=== PATIENT | female | born 1975 | race Caucasian/White ===

== ENCOUNTER 2018-07-08 20:28 | Emergency (ER) | payer OTHER ==
--- NOTE | 2018-07-08 21:25 | EDM.PDOC ---
ED HPI GENERAL MEDICAL PROBLEM - General Stated Complaint: SPLINT RESPLACEMENT AND CHECK Time Seen by Provider: 07/08/18 20:28 Source of Information: Reports: Patient, Family History Limitations: Reports: No Limitations - History of Present Illness INITIAL COMMENTS - FREE TEXT/NARRATIVE: 42 y.o.w.f came from [facility] after an ankle surgery. A short right lower leg splint was applied at [place], crutches were given at [place], which the pt left at home. The patient came to the ed with her dad because her splint is wet. Her splint was already wet as she left [place]. Splint did not dry up in the past 4 hours. Pt denied pain or any other discomfort. She want a new splint applied. No N/V/D or any other acute medical issues. BP 122/83 Pulse 71 RR 18 Pulse ox 98% on RA Temp 37.1 Onset Date: 07/08/18 Onset Time: 14:00 Duration: Hour(s): Location: Reports: Lower Extremity, Right Quality: Reports: Other (wet splint) Severity: Mild Improves with: Reports: None Worsens with: Reports: None Context: Reports: Other (wet left splint) Associated Symptoms: Reports: No Other Symptoms - Related Data Allergies Allergy/AdvReac Type Severity Reaction Status Date / Time hylan G-F 20 [Hylan G-F 20] Allergy Mild Cannot Verified 04/24/13 09:33 Remember levonorgestrel Allergy Cannot Verified 04/24/13 09:33 Remember methylprednisolone Allergy Cannot Verified 04/24/13 09:33 Remember triamcinolone Allergy Cannot Verified 04/24/13 09:33 Remember Home Meds: Home Meds Ascorbic Acid [C-1000] 1 mg PO DAILY 04/21/13 [History] Calcium Carb/D3/Magnesium/Zinc [Rudi Mag Zinc + D Tablet] 1 each PO 04/21/13 [ History] Docusate Sodium 100 mg PO DAILY 04/21/13 [History] Fluticasone Propionate [Flovent] 1 puff IH BID 04/21/13 [History] Gluc 2KCl/Chondr/Jordon Hy/Hy Ac [Glucosamine & Chondroitin Cap] 30 ml PO DAILY [History] Hydrocortisone Acetate [Anusol-Hc] 25 mg RECTAL DAILY 04/21/13 [History] Hydrocortisone [Anusol-HC] 2.5 percent TOP BID 04/21/13 [History] LORazepam [Ativan] 0.5 mg PO BID 04/21/13 [History] Multivitamin [Multi Vitamin Daily] 1 each PO DAILY 04/21/13 [History] Polyethylene Glycol 3350 [MiraLAX] 17 g PO DAILY 04/21/13 [History] Venlafaxine [Effexor XR] 150 mg PO DAILY 04/21/13 [History] Vit B12/Fa/Pyridoxine HCl/AA15 [Glycotrol] 1,000 mg PO BID 04/21/13 [History] Vitamin B Complex [B-100 Complex] 1 each PO DAILY 04/21/13 [History] Zolpidem [Ambien] 5 mg PO BEDTIME 04/21/13 [History] traMADol Hcl/Acetaminophen [Ultracet Tablet] 37.5 - 325 mg PO BID 04/21/13 [ History] Review of Systems - Review of Systems Review Of Systems: See Below Constitutional: Reports: No Symptoms Eyes: Reports: No Symptoms Ears: Reports: No Symptoms Nose: Reports: No Symptoms Mouth/Throat: Reports: No Symptoms Respiratory: Reports: No Symptoms Cardiovascular: Reports: No Symptoms GI/Abdominal: Reports: No Symptoms Genitourinary: Reports: No Symptoms Musculoskeletal: Reports: Other (left ankle surgery) Skin: Reports: No Symptoms Neurological: Reports: No Symptoms Psychiatric: Reports: No Symptoms ED EXAM, GENERAL - Physical Exam Exam: See Below Exam Limited By: No Limitations General Appearance: Alert, WD/WN, Obese Eye Exam: Bilateral Eye: Normal Inspection Ears: Normal External Exam Ear Exam: Bilateral Ear: Auricle Normal Nose: Normal Inspection Throat/Mouth: Normal Inspection Head: Atraumatic, Normocephalic Neck: Normal Inspection, Supple, Non-Tender, Full Range of Motion Respiratory/Chest: No Respiratory Distress, Lungs Clear, Normal Breath Sounds, No Accessory Muscle Use, Chest Non-Tender Cardiovascular: Normal Peripheral Pulses, Regular Rate, Rhythm, No Edema, No Gallop, No JVD, No Murmur Peripheral Pulses: 1+: Brachial (R) GI/Abdominal: Normal Bowel Sounds (Female) Exam: Deferred Rectal (Female) Exam: Deferred Back Exam: Normal Inspection, Full Range of Motion Extremities: Normal Capillary Refill, Other (slint left leg) Neurological: Alert, Oriented, CN II-XII Intact, Normal Cognition, Abnormal Gait (splint left leg) Psychiatric: Normal Affect, Depressed Mood Skin Exam: Warm, Dry, Intact, Normal Color, No Rash Lymphatic: No Adenopathy ED TRAUMA EXTREMITY PROCEDURES - Splinting Right Lower Extremity Splint Site: short lower leg spint replacement, was wet Pre-Procedure NV Status: Normal Post-Procedure NV Status: Normal Splint Material: Fiberglass Splint Design: Posterior Applied & Form Fitted By: Provider Provider Post-Splint Application NV Check: NV Status Normal, Good Position Complications: No Course - Vital Signs Text/Narrative:: 42 y.o.w.f came from [facility] after an ankle surgery. A short right lower leg splint was applied at [place], crutches were given at [place], which the pt left at home. The patient came to the ed with her dad because her splint is wet. Her splint was already wet as she left [place]. Splint did not dry up in the past 4 hours. Pt denied pain or any other discomfort. She want a new splint applied. No N/V/D or any other acute medical issues. BP 122/83 Pulse 71 RR 18 Pulse ox 98% on RA Temp 37.1 PE: WNWD W F s/p left ankle surgery, splint was placed at [place]. The soft padding of the the splint is wet, not the Fiberglas Procedure: Please see not above Impression: Replacement of soft padding of the left lower leg splint Tx: Replacement of padding left leg splint, done by EDMD Reexam: Improved Plan: D/C with instructions Last Recorded V/S: Last Vital Signs Temp 37.1 C 07/08/18 20:30 Pulse 77 07/08/18 20:30 Resp 18 07/08/18 20:30 BP 124/83 07/08/18 20:30 Pulse Ox 99 07/08/18 20:30 Departure - Departure Time of Disposition: 21:22 Disposition: Home, Self-Care 01 Condition: Good Clinical Impression: Problem with fiberglass cast - Discharge Information Instructions: Cast or Splint Care, Adult, [id number] Referrals: PCP,None [Primary Care Provider] - Forms: ED Department Discharge Additional Instructions: Rest, ICE and elevation, please f/u, come back if your symptoms get worse acutely
[2018-07-09 00:51] VITALS: BP 124/83
== END 2018-07-08 21:35 | disposition home or self-care (01) ==
LOC: FB.ED 20:28
DX: Z47.89 Encounter for other orthopedic aftercare (principal); M79.661 Pain in right lower leg; Z79.899 Other long term (current) drug therapy; Z88.8 Allergy status to other drugs, medicaments and biological substances; Z98.890 Other specified postprocedural states
CPT/HCPCS: 99282

== ENCOUNTER 2018-08-15 21:54 | Emergency (ER) | payer OTHER ==
[2018-08-15] MEDS ORDERED: Alum Hydroxide/Mag Hydroxide 15 ML, Lidocaine 2% 15 ML PO STA ×2 (21:58)
[2018-08-15] MEDS ORDERED: Ondansetron 8 MG Tab.DIS PO ONE (21:58)
--- NOTE | 2018-08-15 22:02 | EDM.PDOC ---
ED HPI GENERAL MEDICAL PROBLEM - General Stated Complaint: ABD PAIN,MIGRAINE Time Seen by Provider: 08/15/18 21:54 Source of Information: Reports: Patient, Family History Limitations: Reports: No Limitations - History of Present Illness INITIAL COMMENTS - FREE TEXT/NARRATIVE: 43 y.o.w.f s/p Gastric By pass 2010, came to the ed a few hours after she ate pork for dinner, she had several nl BMs today and was vomiting a few times as well. No trauma, did not vomit blood or coffee ground material. no dizziness, no lightheadedness no other acute medical issue. BP 129/70 Pulse 109 RR 18 Pulse ox 100% on RA Temp 37.8 Onset Date: 08/15/18 Onset Time: 18:00 Duration: Hour(s):, Intermittent Location: Reports: Abdomen Quality: Reports: Ache, Burning, Dull, Pressure, Same as Previous Episode Severity: Moderate Improves with: Reports: Rest Worsens with: Reports: Eating Context: Reports: Other (S/P Bypass surgery 2010 in [place].) Associated Symptoms: Reports: Malaise, Nausea/Vomiting Headache Pain Score (Numeric/FACES): 9 abdomen Pain Score (Numeric/FACES): 9 - Related Data Allergies Allergy/AdvReac Type Severity Reaction Status Date / Time hylan G-F 20 [Hylan G-F 20] Allergy Mild Cannot Verified 08/15/18 22:14 Remember levonorgestrel Allergy Cannot Verified 08/15/18 22:14 Remember methylprednisolone Allergy Cannot Verified 08/15/18 22:14 Remember triamcinolone Allergy Cannot Verified 08/15/18 22:14 Remember Home Meds: Home Meds . [Unable to Verify Home Med List] 08/16/18 [History] Past Medical History Other Musculoskeletal History: Pt had surgery on left ankle last Wednesday ED ROS GENERAL - Review of Systems Review Of Systems: See Below Constitutional: Reports: No Symptoms HEENT: Reports: No Symptoms Respiratory: Reports: No Symptoms Cardiovascular: Reports: No Symptoms Endocrine: Reports: No Symptoms GI/Abdominal: Reports: Abdominal Pain : Reports: No Symptoms Musculoskeletal: Reports: No Symptoms Skin: Reports: No Symptoms Neurological: Reports: No Symptoms Psychiatric: Reports: No Symptoms Hematologic/Lymphatic: Reports: No Symptoms Immunologic: Reports: No Symptoms ED EXAM, GI/ABD - Physical Exam Exam: See Below Exam Limited By: No Limitations General Appearance: Alert, WD/WN, Mild Distress, Obese (morbid) Eyes: Bilateral: Normal Appearance Ears: Normal External Exam Nose: Normal Inspection Throat/Mouth: Normal Lips, Normal Voice, No Airway Compromise Head: Atraumatic, Normocephalic Neck: Normal Inspection, Supple, Non-Tender, Full Range of Motion Respiratory/Chest: No Respiratory Distress, Lungs Clear, No Accessory Muscle Use , Chest Non-Tender Cardiovascular: Normal Peripheral Pulses, Regular Rate, Rhythm, No Edema, No Gallop, No Murmur, No Rub GI/Abdominal Exam: Normal Bowel Sounds, No Organomegaly, No Abnormal Bruit, No Mass, Tender (epigastric tenderness) (Female) Exam: Deferred Rectal (Female) Exam: Deferred Back Exam: Normal Inspection, Full Range of Motion Extremities: Normal Inspection, Normal Range of Motion, Non-Tender, No Pedal Edema Neurological: Alert, Oriented, Normal Cognition, Normal Gait Psychiatric: Depressed Mood, Tearful Skin Exam: Warm, Dry, Intact, Normal Color, No Rash Lymphatic: No Adenopathy Course - Vital Signs Text/Narrative:: 43 y.o.w.f s/p Gastric By pass 2010, came to the ed a few hours after she ate pork for dinner, she had several nl BMs today and was vomiting a few times as well. No trauma, did not vomit blood or coffee ground material. no dizziness, no lightheadedness no other acute medical issue. BP 129/70 Pulse 109 RR 18 Pulse ox 100% on RA Temp 37.8 PE:Morbid obese 43 y.o.w.f.c/o upper abd. pain Imaging: Abd flat/upright: NSBGB, official report is pending Impression: S/P Gastric Bypass 2010, Gastritis Tx: Zofran, GI cocktail Protronix and Henderson Reexam; 80% improved Plan: D/C with instructions Last Recorded V/S: Last Vital Signs Temp 37.8 C 08/15/18 21:54 Pulse 109 H 08/15/18 21:54 Resp 18 08/15/18 21:54 BP 129/70 08/15/18 21:54 Pulse Ox 100 08/15/18 21:54 - Orders/Labs/Meds Orders: Active Orders 24 hr Category Date Time Status Abdomen 2V AP Flat Upright [CR] Stat Exams 08/15/18 23:17 Taken Meds: Medications Discontinued Medications Generic Name Dose Route Start Last Admin Trade Name Griselda PRN Reason Stop Dose Admin Hydrocodone Bitart/Acetaminophen 1 tab 08/15/18 23:57 08/16/18 00:00 Henderson 325-5 Mg PO 08/15/18 23:58 1 tab ONETIME ONE Administration Al Hydroxide/Mg Hydroxide 15 0 ml 08/15/18 21:58 08/15/18 22:20 ml/ Lidocaine HCl 15 ml PO 08/15/18 21:59 30 ml ONETIME STA Administration Ondansetron HCl 8 mg 08/15/18 21:58 08/15/18 22:10 Zofran Odt PO 08/15/18 21:59 8 mg ONETIME ONE Administration Pantoprazole Sodium 40 mg 08/15/18 22:57 08/15/18 23:15 Protonix PO 08/15/18 22:58 40 mg ONETIME STA Administration Departure - Departure Time of Disposition: 00:10 Disposition: Home, Self-Care 01 Condition: Good Clinical Impression: Gastritis - Discharge Information Referrals: PCP,None [Primary Care Provider] - Forms: ED Department Discharge Additional Instructions: Please cont your current meds, please f/u with your PMD, come back if your symptoms get worse acutely - My Orders Last 24 Hours: My Active Orders 08/15/18 23:17 Abdomen 2V AP Flat Upright [CR] Stat - Assessment/Plan Last 24 Hours: My Active Orders 08/15/18 23:17 Abdomen 2V AP Flat Upright [CR] Stat
[2018-08-15] MEDS ORDERED: Pantoprazole 40 MG Tab.CR PO STA (22:57)
[2018-08-15] MEDS ORDERED: Acetaminophen/HYDROcodone 325-5 MG Tab PO ONE (23:57)
[2018-08-16 01:58] VITALS: BP 107/71
== END 2018-08-16 00:30 | disposition home or self-care (01) ==
LOC: FB.ED 21:54
DX: K29.70 Gastritis, unspecified, without bleeding (principal); Z88.8 Allergy status to other drugs, medicaments and biological substances; Z98.84 Bariatric surgery status
CPT/HCPCS: 74019; 99284; A9270